=== PATIENT | male | born 1985 | race African-American/Black ===

== ENCOUNTER 2024-12-11 13:39 | Outpatient (CLI) | payer OTHER, SELFPAY ==
--- NOTE | 2024-12-11 14:30 | NEURO_ITS ---
Impression: # Complains of numbness of hands. Non-diabetic. ? # Bilateral Carpal Tunnel Syndrome. ? # No ulnar neuropathy. ? # Normal needle/EMG exam. Nerve Conduction Studies Anti Sensory Summary Table ?Stim Site NR Peak (ms) P-T Amp (?V) Site1 Site2 Delta-P (ms) Dist (cm) Kirk (m/s) Left Median Anti Sensory (2-3nd Digit) Wrist ? 5.5 15.6 Wrist 2-3nd Digit 5.5 14.0 25 Wrist ? 5.3 25.3 Wrist 2-3nd Digit 5.5 14.0 25 Right Median Anti Sensory (2-3nd Digit) Wrist ? 5.0 32.5 Wrist 2-3nd Digit 5.0 14.0 28 Wrist ? 4.8 28.2 Wrist 2-3nd Digit 5.0 14.0 28 Left Radial Anti Sensory (Base 1st Digit) Wrist ? 2.1 11.3 Wrist Base 1st Digit 2.1 0.0 Right Radial Anti Sensory (Base 1st Digit) Wrist ? 2.1 13.1 Wrist Base 1st Digit 2.1 0.0 Left Ulnar Anti Sensory (5th Digit) Wrist ? 2.5 30.5 Wrist 5th Digit 2.5 14.0 56 Right Ulnar Anti Sensory (5th Digit) Wrist ? 2.7 14.3 Wrist 5th Digit 2.7 14.0 52 Motor Summary Table ?Stim Site NR Onset (ms) O-P Amp (mV) Site1 Site2 Delta-0 (ms) Dist (cm) Kirk (m/s) Left Median Motor (Abd Poll Brev) Wrist ? 4.9 6.6 Elbow Wrist 5.1 31.0 61 Elbow ? 10.0 8.3 Right Median Motor (Abd Poll Brev) Wrist ? 5.0 4.3 Elbow Wrist 4.5 29.0 64 Elbow ? 9.5 5.0 Left Ulnar Motor (Abd Dig Minimi) Wrist ? 2.6 5.3 A Elbow Wrist 5.1 30.0 59 A Elbow ? 7.7 4.3 Right Ulnar Motor (Abd Dig Minimi) Wrist ? 2.6 5.0 A Elbow Wrist 5.1 30.0 59 A Elbow ? 7.7 4.4 F Wave Studies ?NR F-Lat (ms) L-R F-Lat (ms) Left Median (Mrkrs) (Abd Poll Brev) ? 32.44 1.59 Right Median (Mrkrs) (Abd Poll Brev) ? 34.02 1.59 Left Ulnar (Mrkrs) (Abd Dig Min) ? 31.25 1.17 Right Ulnar (Mrkrs) (Abd Dig Min) ? 30.08 1.17 EMG ?Side Muscle Nerve Root Ins Act Fibs Amp Dur Recrt Comment Right 1stDorInt Ulnar C8-T1 Nml Nml Nml Nml Nml Right Ext Indicis Radial (Post Int) C7-8 Nml Nml Nml Nml Nml Right Ext Digitorum Radial (Post Int) C7-8 Nml Nml Nml Nml Nml Right BrachioRad Radial C5-6 Nml Nml Nml Nml Nml Right PronatorTeres Median C6-7 Nml Nml Nml Nml Nml Right Abd Poll Brev Median C8-T1 Nml Nml Nml Nml Nml Right ABD Dig Min Ulnar C8-T1 Nml Nml Nml Nml Nml Left 1stDorInt Ulnar C8-T1 Nml Nml Nml Nml Nml Left Ext Indicis Radial (Post Int) C7-8 Nml Nml Nml Nml Nml Left Ext Digitorum Radial (Post Int) C7-8 Nml Nml Nml Nml Nml Left BrachioRad Radial C5-6 Nml Nml Nml Nml Nml Left PronatorTeres Median C6-7 Nml Nml Nml Nml Nml Left Abd Poll Brev Median C8-T1 Nml Nml Nml Nml Nml Left ABD Dig Min Ulnar C8-T1 Nml Nml Nml Nml Nml MTDD
== END 2024-12-11 13:40 | disposition home or self-care (01) ==
PROVIDERS: Visit Provider Physician Assistant
DX: G56.03 Carpal tunnel syndrome, bilateral upper limbs (principal); E11.9 Type 2 diabetes mellitus without complications; K21.9 Gastro-esophageal reflux disease without esophagitis; F32.9 Major depressive disorder, single episode, unspecified
CPT/HCPCS: 95886; 95911